=== PATIENT | male | born 1975 | race Caucasian/White ===

== ENCOUNTER 2018-02-21 00:04 | Emergency (ER) | payer SELFPAY ==
[~2018-02-21] VITALS: Ht 172.7 cm; Wt 110.5 kg
[2018-02-21 00:06] VITALS: BP 169/100; PULSE 91; RESP 18; TEMP 97.7; O2SAT 94
[2018-02-21 00:35] VITALS: BP 169/100; PULSE 91; RESP 18; TEMP 97.7; O2SAT 94
[2018-02-21] MEDS ORDERED: LIDOCAINE HCL 1% 20 ML VIAL ONE (00:44)
[2018-02-21] MEDS ORDERED: LIDOCAINE HCL 1% 50 ML VIAL INFIL ONE (00:45)
--- NOTE | 2018-02-21 01:04 | PD ---
HPI Chief Complaint: Laceration/Skin Injury Time Seen by Provider: 00:22 Travel History International Travel<30 days: No Contact w/Intl Traveler<30days: No Traveled to known affect area: No History of Present Illness HPI Patient is a 42-year-old male who presents the emergency room with laceration to his right eyebrow. Patient reports that he was at home today, reports he tripped and fell forward, reports that his right eyebrow landed onto the side of the freezer. Patient denies any loss of consciousness, denies headache or dizziness at this time. Patient denies any vision changes. Patient denies any neck pain. Patient currently is not on anticoagulants. Patient is here for sutures to his right eyebrow. PFSH Past Medical History GERD: Yes Tetanus Vaccination: < 5 Years Past Surgical History Surgical History: No Previous Surgery Social History Alcohol Use: Yes Tobacco Use: Yes Substance Use: No Allergies-Medications (Allergen,Severity, Reaction): Coded Allergies: No Known Allergies (Unverified , 02/21/18) Review of Systems General / Constitutional: No: Fever Eyes: No: Visual changes HENT: No: Headaches Cardiovascular: No: Chest Pain or Discomfort Respiratory: No: Shortness of Breath Gastrointestinal: No: Abdominal Pain Genitourinary: No: Dysuria Musculoskeletal: No: Pain Skin: No Rash Neurologic: No: Weakness Psychiatric: No: Depression Endocrine: No: Polydipsia Hematologic/Lymphatic: No: Easy Bruising Physical Exam Narrative GENERAL: Well-nourished, well-developed patient. SKIN: Focused skin assessment warm/dry. HEAD: Normocephalic. Patient with Y-shaped laceration to right eyebrow EYES: No scleral icterus. No injection or drainage. NECK: Supple, trachea midline. No JVD or lymphadenopathy. CARDIOVASCULAR: Regular rate and rhythm without murmurs, gallops, or rubs. RESPIRATORY: Breath sounds equal bilaterally. No accessory muscle use. GASTROINTESTINAL: Abdomen soft, non-tender, nondistended. MUSCULOSKELETAL: No cyanosis, or edema. BACK: Nontender without obvious deformity. No CVA tenderness. Data Data Last Documented VS Vital Signs Date Time Temp Pulse Resp B/P (MAP) Pulse Ox O2 Delivery O2 Flow Rate FiO2 02/21/18 00:35 97.7 91 18 169/100 (123) 94 Orders Orders ^ [facility]igate (02/21/18 00:31) Lidocaine 1% Inj (50 Ml) (Xylocaine 1% I (02/21/18 00:45) Lidocaine 1% Inj (Xylocaine 1% Inj) (02/21/18 00:44) Iznr-Muq-Qryapf (Booster) Inj (Boostrix (02/21/18 01:15) MDM Medical Decision Making Medical Screen Exam Complete: Yes Emergency Medical Condition: Yes Medical Record Reviewed: Yes Interpretation(s) Vital Signs Date Time Temp Pulse Resp B/P (MAP) Pulse Ox O2 Delivery O2 Flow Rate FiO2 02/21/18 00:35 97.7 91 18 169/100 (123) 94 02/21/18 00:06 97.7 91 18 169/100 (123) 94 Differential Diagnosis Intracranial hemorrhage, laceration Narrative Course Patient with normal neurological exam, patient defers CT of the head at this time, plan to observe patient. Patient will be going home with his family member who will observe him, will have him come back to the emergency room should he develop any change in mental status. Sutures were placed, bacitracin dressings were placed, patient will have sutures removed in 7 days. Tetanus is updated. Signs and symptoms of when to return to the emergency room was reviewed patient detail. Procedures Procedure Narrative LACERATION LOCATION: right eyebrow LENGTH: y shaped - length 5cm NUMBER OF STITCHES/OLIMPIA: 6 simple interrupted sutures using four-point 0 Vicryl REPAIR: The area of the laceration was prepped with Betadine and sterilely draped. The laceration was infiltrated with 1% lidocaine. The wound was copiously irrigated and explored without evidence of foreign body, tendon injury or neurovascular injury. The wound was closed using simple interrupted sutures. This was a single layer repair. A sterile dressing was applied. The patient was advised to keep the dressing clean and dry. Patient tolerated the procedure well. Diagnosis Primary Impression: Facial laceration Qualified Codes: S01.81XA - Laceration without foreign body of other part of head, initial encounter Patient Instructions: General Instructions Additional Instructions: Suture removal in 7 days Please keep wound clean Apply bacitracin twice a day Return to the emergency room if you develop any signs of infection Return to the emergency room as needed Disposition: 01 DISCHARGE HOME Condition: Stable Audra Irving DO February 21, 2018 01:03
[2018-02-21] MEDS ORDERED: DIPHTH/TETANUS/ACEL PERTUSSIS (BOOSTER) 0.5 ML VIAL/PFS IM ONE (01:15)
[2018-02-21 01:47] VITALS: BP 155/90
== END 2018-02-21 01:49 | disposition home or self-care (01) ==
LOC: PHED 00:04
DX: S01.111A Laceration without foreign body of right eyelid and periocular area, initial encounter (principal); K21.9 Gastro-esophageal reflux disease without esophagitis
CPT/HCPCS: 12013